=== PATIENT | female | born 1945 | race Caucasian/White ===

== ENCOUNTER 2017-06-14 05:26 | Day surgery (SDC) | payer MEDICARE, BC ==
[2017-06-14] MEDS ORDERED: CLINDAMYCIN 900 MG/50 ML D5W IVPB IVPB (07:00)
[2017-06-14] MEDS ORDERED: SOD CHLORIDE 0.9% 1,000 ML IV (07:04)
[2017-06-14] MEDS ORDERED: DEXAMETHASONE 4 MG/ML 1 ML INJ (07:20)
[2017-06-14] MEDS ORDERED: ROCURONIUM 50 MG INJ (07:20)
[2017-06-14] MEDS ORDERED: GLYCOPYRROLATE 0.4 MG INJ (07:20)
[2017-06-14] MEDS ORDERED: ONDANSETRON 4 MG INJ (07:20)
[2017-06-14] MEDS ORDERED: PROPOFOL 20 ML (07:20)
[2017-06-14] MEDS ORDERED: CEFAZOLIN 1 GM INJ (07:20)
[2017-06-14] MEDS ORDERED: FENTAnyl 50 MCG/ML VIAL (07:20)
[2017-06-14] MEDS ORDERED: MIDAZOLAM 1 MG/ML 2 ML INJ (07:20)
[2017-06-14] MEDS ORDERED: NEOSTIGMINE 3 MG/3 ML SYRINGE (07:20)
[2017-06-14] MEDS ORDERED: morphine 2 MG INJ IV (07:30)
[2017-06-14] MEDS ORDERED: ONDANSETRON 4 MG INJ IV ×2 (07:30→08:00)
[2017-06-14] MEDS ORDERED: OXYCODONE/ACETAMINOPHEN (5/325) TAB PO ×4 (07:30→08:00)
[2017-06-14] MEDS ORDERED: EPHEDrine SULFATE 50 MG/5 ML SYG IV (08:00)
[2017-06-14] MEDS ORDERED: ALBUTEROL 0.083% (NEB) 2.5 MG/3 ML AMP HHN (08:00)
[2017-06-14] MEDS ORDERED: DIPHENHYDRAMINE 50 MG INJ IV (08:00)
[2017-06-14] MEDS ORDERED: hydrALAzine 20 MG INJ IV (08:00)
[2017-06-14] MEDS ORDERED: LABETALOL HCL 20MG INJ IV (08:00)
[2017-06-14] MEDS ORDERED: TRIMETHOBENZAMIDE 100 MG/ML VIAL IM (08:00)
[2017-06-14] MEDS ORDERED: IPRATROPIUM (NEB) 0.5 MG/2.5 ML AMP HHN (08:00)
[2017-06-14] MEDS ORDERED: MIDAZOLAM 1 MG/ML 2 ML INJ IV (08:00)
[2017-06-14] MEDS ORDERED: MEPERIDINE 25 MG INJ IV (08:00)
[2017-06-14] MEDS ORDERED: FENTAnyl 50 MCG/ML VIAL IV ×3 (08:00)
[2017-06-14] MEDS ORDERED: HYDROmorphONE (0.2 MG/ML) 10ML SYG IV ×3 (08:00)
[2017-06-14] MEDS ORDERED: LABETALOL HCL 20MG INJ (08:10)
[2017-06-14] MEDS: POVIDONE IODINE 10% 28.4 GM OINT (08:24)
[2017-06-14] MEDS: ROPIVACAINE 0.5 % 30 ML VIAL (08:24)
[2017-06-14] MEDS ORDERED: SUGAMMADEX SODIUM 200 MG/2 ML VIAL IV (08:58)
== END 2017-06-14 11:10 | disposition home or self-care (01) ==
LOC: SDS 05:26
DX: S83.272A Complex tear of lateral meniscus, current injury, left knee, initial encounter (principal); S83.232A Complex tear of medial meniscus, current injury, left knee, initial encounter; M94.262 Chondromalacia, left knee; X58.XXXA Exposure to other specified factors, initial encounter; Y93.89 Activity, other specified; Y92.89 Other specified places as the place of occurrence of the external cause; Y99.8 Other external cause status
CPT/HCPCS: 29880; 88304